=== PATIENT | male | born 1990 | race Caucasian/White ===

== ENCOUNTER 2016-07-24 14:28 | Emergency (ER) | payer SELFPAY ==
[2016-07-24 15:46] VITALS: BP 142/90
[2016-07-24] MEDS ORDERED: Naproxen TAB* 375 MG PO ONE (17:16)
--- NOTE | 2016-07-24 17:22 | UC ---
Shoulder Pain HPI - HPI Summary HPI Summary: 25 male presents today complaining of right shoulder pain that began approximately two weeks ago after moving a heavy tank at work without the appropriate equipment. He states he has had a dull ache in the back side of his right shoulder blade that makes it painful to move his right upper extremity and when he takes a deep breath. Patient took two Aleve today prior to arrival with some relief. He has not tried anything else. He has been unable to rest his shoulder and had some difficulty sleeping last night due to the pain. He is able to move his arm however it does cause him pain. Denies difficulty breathing , chest pain, numbness/tingling, loss of sensation or circulation and any other injury/pain. Admits to radiation to his neck intermittently. States his pain is about a 6 right now, however was a 4 earlier after Aleve. Describes the pain to be dull and achey with sharp pain upon movement. - History of Current Complaint Chief Complaint: UCUpperExtremity Stated Complaint: SHOULDER INJURY Time Seen by Provider: 07/24/16 16:58 Hx Obtained From: Patient Onset/Duration: Sudden Onset, Lasting Weeks Timing: Constant Severity Initially: Mild Severity Currently: Moderate Location Of Pain: Is Discrete @ - right shoulder, Radiates To - neck Pain Intensity: 6 Pain Scale Used: 0-10 Numeric Character: Sharp, Dull, Aching, Stiffness Alleviating Factor(s): Rest, OTC Meds Associated Signs And Symptoms: Positive: Negative Related History: Dominant Hand Right - Allergies/Home Medications Allergies/Adverse Reactions: Allergies Allergy/AdvReac Type Severity Reaction Status Date / Time No Known Allergies Allergy Verified 07/24/16 15:45 Home Medications: Home Medications Aleve* 2 tab PO PRN 07/24/16 [History] PMH/Surg Hx/FS Hx/Imm Hx Endocrine History Of: Denies: Diabetes, Thyroid Disease Cardiovascular History Of: Denies: Cardiac Disorders, Hypertension Respiratory History Of: Denies: COPD, Asthma GI/ History Of: Denies: Ulcer - Surgical History Surgical History: Yes Surgery Procedure, Year, and Place: EAR TUBES, NASAL SURGERY - Family History Known Family History: Positive: Cardiac Disease - Social History Alcohol Use: None Substance Use Type: None Smoking Status (MU): Never Smoked Tobacco Review of Systems Constitutional: Negative Skin: Negative Eyes: Negative ENT: Negative Respiratory: Negative Cardiovascular: Negative Gastrointestinal: Negative Genitourinary: Negative Motor: Decreased ROM - due to pain of right upper extremity Neurovascular: Negative Musculoskeletal: Arthralgia, Myalgia Neurological: Negative Psychological: Negative All Other Systems Reviewed And Are Negative: Yes Physical Exam Triage Information Reviewed: Yes Appearance: Well-Appearing - sitting in chair, No Pain Distress, Well-Nourished Vital Signs: Initial Vital Signs Temp 99.5 F 07/24/16 15:42 Pulse 92 07/24/16 15:42 Resp 16 07/24/16 15:42 BP 142/90 07/24/16 15:42 Pulse Ox 100 07/24/16 15:42 Vital Signs Reviewed: Yes Eyes: Positive: Conjunctiva Clear ENT Exam: Normal Neck: Positive: Supple, Nontender, No Lymphadenopathy Respiratory: Positive: Chest non-tender, Lungs clear, Normal breath sounds, No respiratory distress Cardiovascular: Positive: RRR, No Murmur, Pulses Normal - 2+ b/l radial pulses, Brisk Capillary Refill - <2 seconds b/l Abdomen Description: Positive: Nontender, No Organomegaly, Soft Bowel Sounds: Positive: Present Musculoskeletal: Positive: Strength Intact - 5/5 bilateral upper extremities, ROM Intact - has some pain with extension/flexion of right shoulder. passive ROM intact without much pain. tenderness on palpation of right posterior shoulder blade lateral to thoracic spine. no pain on palpation of spine or bony prominences of shoulder or neck. some scoliosis noted on palpation of spine. normal left shoulder, No Edema - no eccymosis, step-off, crepitus or obvious deformity noted. sensation and skin intact. Neurological Exam: Normal Psychological Exam: Normal Skin Exam: Normal Shoulder Course/Dx - Course Course Of Treatment: due to physcial exam signs and history of illness/LISA x- ray was not needed at this time. patient was instructed to use ibuprofen and muscle relaxers at night to help with pain and discomfort. was also told to make an appointment with ortho if pain does not subside after 5-7 days of the treatment regimen for further imaging and evaluation. ice/heat as needed. - Differential Dx/Diagnosis Differential Diagnosis/HQI/PQRI: Contusion, Rotator Cuff Injury, Sprain, Strain , Tendonitis Provider Diagnoses: muscle strain of right shoulder, costochondritis Discharge - Discharge Plan Condition: Stable Disposition: HOME Prescriptions: Cyclobenzaprine TAB* [Flexeril TAB*] 10 mg PO DAILY PRN #10 tab PRN Reason: Pain Ibuprofen TAB* [Motrin TAB* 600 MG] 600 mg PO Q8H PRN #20 tab PRN Reason: Pain Patient Education Materials: Shoulder Pain (ED), Muscle Strain (ED) Referrals: Philippe Pierce MD [Primary Care Provider] - Tanya Renteria MD [Medical Doctor] - Additional Instructions: Take medication as prescribed for the next 7-10 days. If symptoms persist or worsen please make an appointment with orthopedics, your primary care doctor or return to for further imaging/evaluation. Heat/ice alternations will help. Rest your shoulder as much as possible and refrain from physical activity.
[2016-07-24] MEDS ORDERED: Naproxen TAB* 250 MG ONE (17:29)
== END 2016-07-24 17:37 | disposition home or self-care (01) ==
LOC: UCEAST 14:28
DX: S46.911A Strain of unspecified muscle, fascia and tendon at shoulder and upper arm level, right arm, initial encounter (principal); X50.0XXA Overexertion from strenuous movement or load, initial encounter; Y93.89 Activity, other specified; Y92.9 Unspecified place or not applicable; Y99.0 Civilian activity done for income or pay; M94.0 Chondrocostal junction syndrome [Tietze]
CPT/HCPCS: 99212; A9270-GY; G0463

== ENCOUNTER 2017-03-15 12:23 | Emergency (ER) | payer SELFPAY ==
[2017-03-15 12:38] VITALS: BP 126/78
[2017-03-15] MEDS ORDERED: Fluorescein Sodium TOPICAL* 1 MG TEST OPHTHALMIC ONE (12:38)
--- NOTE | 2017-03-15 12:54 | UC ---
Regis Spaulding Rebecca, scribed for Nathalie Rodarte MD on 03/15/17 at 1245 . Eye Complaint HPI - HPI Summary HPI Summary: Pt is a 26 y/o M who presents to [facility] c/o L eye swelling and erythema since 1300 yesterday. Sx began while moving from an old building to a new building. Pain is currently mild, ranked 3/10 and characterized as an ache. Tried washing the eye out, [employer]. Pt additionally notes a FB sensation that has been intermittent since onset and a crusting discharge. States that this morning the eye has been shut due to discharge buildup. Pt reports that every day he does things that put him at risk of FB, both at work and recreationally. Does not wear contacts, but does wear glasses. 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 NKDA. He has 2 kids at home. sx onset was vague. he did not particularly feel a FB go into his eye. no double vision. + tearing a lot. - History of Current Complaint Chief Complaint: UCEye Stated Complaint: EYE ISSUE Hx Obtained From: Patient Onset/Duration: Lasting Days - Srarted yesterday, Still Present Severity Currently: Mild Pain Intensity: 3 Pain Scale Used: 0-10 Numeric Character: Dull Aggravating Factor(s): Nothing Alleviating Factor(s): Nothing Associated Signs And Symptoms: Positive: Drainage (Purulent), Swelling - Allergies/Home Medications Allergies/Adverse Reactions: Allergies Allergy/AdvReac Type Severity Reaction Status Date / Time No Known Allergies Allergy Verified 03/15/17 12:32 PMH/Surg Hx/FS Hx/Imm Hx - Additional Past Medical History Additional PMH: NEGATIVE: DM, CAD Previously Healthy: Yes - Surgical History Surgical History: Yes Surgery Procedure, Year, and Place: EAR TUBES, NASAL SURGERY - Family History Known Family History: Positive: Cardiac Disease - Social History Alcohol Use: None Substance Use Type: None Smoking Status (MU): Never Smoked Tobacco Review of Systems Constitutional: Negative Skin: Negative Eyes: Drainage - Crusting, Eye Redness - Left, Other - Left eye swelling ENT: Negative Respiratory: Negative Cardiovascular: Negative Gastrointestinal: Negative Genitourinary: Negative Motor: Negative Neurovascular: Negative Musculoskeletal: Negative Neurological: Negative Psychological: Negative All Other Systems Reviewed And Are Negative: Yes Physical Exam Triage Information Reviewed: Yes Vital Signs: Initial Vital Signs Temp 97.9 F 03/15/17 12:33 Pulse 76 03/15/17 12:33 Resp 16 03/15/17 12:33 BP 126/78 03/15/17 12:33 Pulse Ox 99 03/15/17 12:33 Vital Signs Reviewed: Yes - Additional Comments Appearance: Well-appearing Eyes: EOMI, PERRL, erythema of the left conjunctiva with a crusting discharge on the eyelashes and inner folds of the eye with no abrasions or FB on the eye when viewed with fluorescein ENT: Normal ENT inspection. Dental: Normal Neck: Supple, non-tender, no lymphadenopathy Lungs: Lungs clear, normal breath sounds, no respiratory distress, no accessory muscle use. Heart: RRR, no murmur, pulses normal. Abdomen: Nontender, soft. Musculoskeletal: Normal Neurological: Normal Psychiatric: Normal Skin: Normal Eye Complaint Course/Dx - Course Course Of Treatment: Pt is a 26 y/o M who presents to [facility] c/o L eye swelling and erythema since 1300 yesterday. Sx began while moving from an old building to a new building. Pain is currently mild, ranked 3/10 and characterized as an ache. Tried washing the eye out, [employer]. Pt additionally notes a FB sensation that has been intermittent since onset and a crusting discharge. States that this morning the eye has been shut due to discharge buildup. Pt reports that every day he does things that put him at risk of FB, both at work and recreationally. Does not wear contacts, but does wear glasses. 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 NKDA. Pt will be D/C to home with Dx of conjunctivitis, left with Rx for Gentamicin eye drops and a follow up with his PCP. He understands and agrees. - Differential Dx/Diagnosis Provider Diagnoses: Conjunctivitis, left Discharge - Discharge Plan Condition: Stable Disposition: HOME Prescriptions: Gentamicin 0.3% OPHTH.SOLN* 1 drop LEFT EYE Q4H #1 btl Patient Education Materials: Conjunctivitis (ED) Referrals: Philippe Pierce MD [Primary Care Provider] - Additional Instructions: Follow up with your eye doctor on Friday03/16/17. You can use cool compresses for some relief and tylenol or ibuprofen for any discomfort. This is very contagious and you should makes sure to avoid touching your eyes. The documentation as recorded by the Regis stack Rebecca accurately reflects the service I personally performed and the decisions made by , Nathalie Rodarte MD.
== END 2017-03-15 12:55 | disposition home or self-care (01) ==
LOC: UCEAST 12:23
DX: H10.9 Unspecified conjunctivitis (principal)
CPT/HCPCS: 99212; A9270-GY; G0463